=== PATIENT | female | born 1955 | race Caucasian/White ===

== ENCOUNTER → 2017-12-08 08:06 | Outpatient (CLI) | payer OTHER, SELFPAY ==
--- NOTE | 2017-12-08 | DI.MG.S_ITS ---
BILATERAL DIGITAL SCREENING MAMMOGRAM 3D/2D WITH CAD: 12/08/2017 CLINICAL: Routine screening. Family history of breast cancer. Comparison is made to exams dated: 11/11/2016 mammogram - [facility], 08/17/2015 mammogram, and 08/01/2014 mammogram - [facility]. The tissue of both breasts is heterogeneously dense. This may lower the sensitivity of mammography. Current study was also evaluated with a Computer Aided Detection (CAD) system. There is a focal asymmetry in the left breast at 4 o'clock middle depth. No other significant masses, calcifications, or other findings are seen in either breast. IMPRESSION: INCOMPLETE: NEEDS ADDITIONAL IMAGING EVALUATION The focal asymmetry in the left breast is indeterminate. Additional views with possible ultrasound are recommended. This exam was interpreted at Station ID: [id number]. NOTE: For mammograms, a report in lay terms will be sent to the patient. Approximately 15% of breast malignancies will not be visualized mammographically. In the management of a palpable breast mass, a negative mammogram must not discourage biopsy of a clinically suspicious lesion. Electronically Signed By: Nilam sheets/denis:12/08/2017 16:53:21 letter sent: Additional Imaging Needed ACR BI-RADS Category 0: Incomplete 3340F
== END ==
PROVIDERS: PCP Internal Medicine; Visit Provider Internal Medicine
DX: Z12.31 Encounter for screening mammogram for malignant neoplasm of breast (principal); Z80.3 Family history of malignant neoplasm of breast
CPT/HCPCS: 77063; 77067

== ENCOUNTER → 2017-12-13 08:44 | Outpatient (CLI) | payer OTHER, SELFPAY ==
[2017-12-13 10:29] LABS: Add Manual Diff / Slide Review NO; Basophils Percent Auto 1.8 % (0-2); Eosinophils Percent Auto 2.9 % (2-4); Hematocrit 39.2 % (36-46); Hemoglobin 13.5 g/dL (12.0-16.0); Lymphocytes Percent Auto 31.1 % (25-40); Mean Corpuscular HGB Conc 34.6 % (30-36); Mean Corpuscular Hemoglobin 31.8 PG (26-34); Mean Corpuscular Volume 92.1 fL (80-100); Monocytes Percent Auto 11.5 % (3-14); Neutrophils Absolute Auto 1900 /uL (3000-5900); Neutrophils Percent Auto 52.7 % (50-75); Platelet Count 148 X10^3/uL (150-400); Red Blood Cell Count 4.25 X10^6/uL (4.0-5.2); Red Cell Distribution Width 14.7 % (11.6-14.8); White Blood Cell Count 3.6 X10^3/uL (4.5-11.0)
[2017-12-13 10:46] LABS: Erythrocyte Sedimentation Rate 4 MM/HR (0-20)
[2017-12-13 11:10] LABS: Alanine Aminotransferase 26 IU/L (9-52); Albumin 4.2 g/dL (3.5-5.0); Albumin Globulin Ratio 1.8 (1.0-2.8); Alkaline Phosphatase 59 U/L (38-126); Aspartate Aminotransferase 19 IU/L (14-36); BUN Creatinine Ratio 16.3 (6-22); Blood Urea Nitrogen 13 mg/dL (7-17); Calcium 9.4 mg/dL (8.4-10.2); Carbon Dioxide 29 mmol/L (22-32); Chloride 104 mmol/L (98-107); Estimated Glomerular Filt Rate > 60.0 mL/min (>60); Globulin 2.3 g/dL (1.7-4.1); Glucose 77 mg/dL (80-110); HEMOLYSIS < 15 (0-50); Potassium 4.4 mmol/L (3.4-5.1); Sodium 144 mmol/L (137-145); Total Protein 6.5 g/dL (6.3-8.2)
[2017-12-13 11:11] LABS: C-Reactive Protein Quant < 0.5 mg/dL (<1.0)
== END ==
PROVIDERS: PCP Internal Medicine; Visit Provider Specialist/Technologist Athletic Trainer
DX: M05.79 Rheumatoid arthritis with rheumatoid factor of multiple sites without organ or systems involvement (principal)
CPT/HCPCS: 36415; 80053; 85025; 85651; 86140

== ENCOUNTER → 2018-01-05 08:49 | Outpatient (CLI) | payer OTHER, SELFPAY ==
--- NOTE | 2018-01-05 | DI.MG.S_ITS ---
UNILATERAL LEFT DIGITAL DIAGNOSTIC MAMMOGRAM 3D/2D WITH ADDITIONAL VIEWS: 01/05/2018 CLINICAL: Additional evaluation requested from prior study. Left breast pain. Comparison is made to exams dated: 12/08/2017 mammogram, 11/11/2016 mammogram - [facility], and 08/17/2015 mammogram - [facility]. The tissue of left breast is heterogeneously dense. This may lower the sensitivity of mammography. Previously noted focal asymmetry in the left breast at 4 o'clock middle depth on comparison screening mammogram resolves with additional views and likely represented superimposition of benign anatomic tissues. There is a square marker overlying the skin of the lower inner left breast at posterior depth at the site of the patient's reported focal pain. There is no underlying mammographic abnormality. No other significant masses, calcifications, or other findings are seen in the breast. IMPRESSION: INCOMPLETE: NEEDS ADDITIONAL IMAGING EVALUATION 1) Previously noted focal asymmetry in the left breast at 4 o'clock middle depth on comparison screening mammogram resolves with additional views and likely represented superimposition of benign anatomic tissues. A targeted ultrasound is recommended and will be performed immediately following this exam. 2) No mammographic abnormality to correlate with the site of the patient's reported focal pain in the lower inner left breast. Targeted diagnostic ultrasound recommended for further evaluation, which will be performed immediately following this exam. This exam was interpreted at Station ID: [id number]. NOTE: For mammograms, a report in lay terms will be sent to the patient. Approximately 15% of breast malignancies will not be visualized mammographically. In the management of a palpable breast mass, a negative mammogram must not discourage biopsy of a clinically suspicious lesion. Electronically Signed By: Javi Reaves M.D. ecl/:01/05/2018 09:28:03 letter sent: Additional Imaging Needed ACR BI-RADS Category 0: Incomplete 3340F
--- NOTE | 2018-01-05 | DI.US.S_ITS ---
LIMITED ULTRASOUND OF LEFT BREAST: 01/05/2018 CLINICAL: Focal left breast pain. Also abn mammo central to nipple and 3-5:00 radians. Comparison is made to exams dated: 01/05/2018 mammogram, 12/08/2017 mammogram, 11/11/2016 mammogram - [facility], 08/17/2015 mammogram, 08/01/2014 mammogram, and 07/12/2013 mammogram - [facility]. Real-time and Doppler ultrasound of the left breast 3-5 o'clock, 7 o'clock, and retroareolar regions were performed. Duke scale images of the real-time examination were reviewed. Targeted ultrasound along the 3-5 o'clock radians does not demonstrate a correlate for the previously noted focal asymmetry in the left breast at 4 o'clock middle depth on comparison screening mammogram, which resolved with additional views and likely represented superimposition of benign anatomic tissues. There is no underlying abnormality or mass identified. Targeted ultrasound along the 7 o'clock radian at the site of the patient's reported focal pain does not demonstrate any underlying abnormality or mass. IMPRESSION: NEGATIVE 1) Previously noted focal asymmetry in the left breast at 4 o'clock middle depth on comparison screening mammogram resolves with additional mammographic views and likely represented superimposition of benign anatomic tissues. Targeted ultrasound demonstrates no abnormality or mass in this region. 2) No mammographic abnormality to correlate with the site of the patient's reported focal pain in the lower inner left breast. Clinical follow-up recommended for further evaluation and management. 3) There is no sonographic evidence of malignancy in the left breast. A 1 year screening mammogram is recommended. The patient is advised to monitor her breasts and to return sooner for re-evaluation should she feel anything grow or change. This exam was interpreted at Station ID: [id number]. Electronically Signed By: Javi Reaves M.D. ecl/:01/05/2018 10:09:35 letter sent: Clinical Evaluation Ultrasound BI-RADS: 1 Negative
== END ==
PROVIDERS: PCP Nurse Practitioner Family; Visit Provider Nurse Practitioner Family
DX: R92.8 Other abnormal and inconclusive findings on diagnostic imaging of breast (principal); N64.4 Mastodynia
CPT/HCPCS: 76642; 77065; G0279

== ENCOUNTER → 2018-02-22 08:53 | Outpatient (CLI) | payer OTHER, SELFPAY ==
[2018-02-22 09:30] LABS: Hematocrit 41.3 % (36-46); Hemoglobin 14.1 g/dL (12.0-16.0); Mean Corpuscular HGB Conc 34.1 % (30-36); Mean Corpuscular Hemoglobin 31.4 PG (26-34); Mean Corpuscular Volume 92.2 fL (80-100); Platelet Count 153 X10^3/uL (150-400); Red Blood Cell Count 4.48 X10^6/uL (4.0-5.2); Red Cell Distribution Width 14.2 % (11.6-14.8); White Blood Cell Count 3.2 X10^3/uL (4.5-11.0)
[2018-02-22 09:39] LABS: Hemoglobin A1C% w Est Avg Glu 5.3 % (4.0-6.0)
[2018-02-22 09:49] LABS: Alanine Aminotransferase 27 IU/L (9-52); Albumin 4.6 g/dL (3.5-5.0); Albumin Globulin Ratio 1.8 (1.0-2.8); Alkaline Phosphatase 62 U/L (38-126); Aspartate Aminotransferase 21 IU/L (14-36); BUN Creatinine Ratio 23.8 (6-22); Bilirubin Total 0.9 mg/dL (0.2-1.3); Blood Urea Nitrogen 19 mg/dL (7-17); Calcium 9.3 mg/dL (8.4-10.2); Carbon Dioxide 26 mmol/L (22-32); Chloride 104 mmol/L (98-107); Cholesterol 220 mg/dL (140-199); Estimated Glomerular Filt Rate > 60.0 mL/min (>60); Globulin 2.6 g/dL (1.7-4.1); Glucose 86 mg/dL (80-110); HDL Cholesterol 66 mg/dL (40-60); HEMOLYSIS < 15 (0-50); LDL Cholesterol Calculated 141 mg/dL (<100); Potassium 4.2 mmol/L (3.4-5.1); Sodium 143 mmol/L (137-145); Total Protein 7.2 g/dL (6.3-8.2); Triglycerides 67 mg/dL (35-150)
[2018-02-22 10:14] LABS: Thyroid Stimulating Hormone 0.11 uIU/mL (0.47-4.68)
[2018-02-22 10:33] LABS: Hep C Virus Ab w/Reflex Quant NEGATIVE s/c (NEGATIVE)
== END ==
PROVIDERS: PCP Nurse Practitioner Family; Visit Provider Nurse Practitioner Family
DX: Z86.39 Personal history of other endocrine, nutritional and metabolic disease (principal); E03.9 Hypothyroidism, unspecified; Z11.59 Encounter for screening for other viral diseases
CPT/HCPCS: 36415; 80053; 80061; 83036; 84443; 85027; 86803

== ENCOUNTER → 2018-06-06 10:58 | Outpatient (CLI) | payer OTHER, SELFPAY ==
[2018-06-06 11:42] LABS: Add Manual Diff / Slide Review NO; Basophils Absolute Auto 0 /uL (0-100); Basophils Percent Auto 0.9 % (0-2); Eosinophils Absolute Auto 100 /uL (0-450); Eosinophils Percent Auto 1.7 % (2-4); Hematocrit 39.4 % (36-46); Hemoglobin 13.3 g/dL (12.0-16.0); Lymphocytes Absolute Auto 1200 /uL (1100-4500); Lymphocytes Percent Auto 23.9 % (25-40); Mean Corpuscular HGB Conc 33.8 % (30-36); Mean Corpuscular Hemoglobin 31.6 PG (26-34); Mean Corpuscular Volume 93.4 fL (80-100); Monocytes Absolute Auto 400 /uL (0-900); Monocytes Percent Auto 7.3 % (3-14); Neutrophils Absolute Auto 3200 /uL (1500-7000); Neutrophils Percent Auto 66.2 % (50-75); Platelet Count 153 X10^3/uL (150-400); Red Blood Cell Count 4.22 X10^6/uL (4.0-5.2); Red Cell Distribution Width 14.6 % (11.6-14.8); White Blood Cell Count 4.8 X10^3/uL (4.5-11.0)
[2018-06-06 12:04] LABS: Erythrocyte Sedimentation Rate 7 MM/HR (0-20)
[2018-06-06 12:22] LABS: Alanine Aminotransferase 24 IU/L (9-52); Albumin 4.3 g/dL (3.5-5.0); Albumin Globulin Ratio 1.9 (1.0-2.8); Alkaline Phosphatase 62 U/L (38-126); Aspartate Aminotransferase 18 IU/L (14-36); BUN Creatinine Ratio 21.3 (6-22); Bilirubin Total 0.8 mg/dL (0.2-1.3); Blood Urea Nitrogen 17 mg/dL (7-17); Calcium 9.4 mg/dL (8.4-10.2); Carbon Dioxide 28 mmol/L (22-32); Chloride 101 mmol/L (98-107); Estimated Glomerular Filt Rate > 60.0 mL/min (>60); Globulin 2.3 g/dL (1.7-4.1); Glucose 96 mg/dL (80-110); HEMOLYSIS < 15 (0-50); Potassium 4.9 mmol/L (3.4-5.1); Sodium 137 mmol/L (137-145); Total Protein 6.6 g/dL (6.3-8.2)
[2018-06-06 12:24] LABS: C-Reactive Protein Quant < 0.5 mg/dL (<1.0)
[2018-06-06 12:40] LABS: Free T3, Triiodothyronine Free 2.66 pg/mL (2.77-5.27); Free T4, Direct Thyroxine 1.13 ng/dL (0.78-2.19)
[2018-06-06 12:54] LABS: Thyroid Stimulating Hormone 7.06 uIU/mL (0.47-4.68)
== END ==
PROVIDERS: Family Provider Nurse Practitioner Family; PCP Nurse Practitioner Family; Visit Provider Specialist/Technologist Athletic Trainer
DX: M05.79 Rheumatoid arthritis with rheumatoid factor of multiple sites without organ or systems involvement (principal); E03.9 Hypothyroidism, unspecified
CPT/HCPCS: 36415; 80053; 84439; 84443; 84481; 85025; 85651; 86140

== ENCOUNTER → 2018-06-27 13:30 | Outpatient (CLI) | payer OTHER, SELFPAY | PROVIDERS: Family Provider Nurse Practitioner Family; PCP Nurse Practitioner Family; Visit Provider Specialist/Technologist Athletic Trainer | DX: M85.88 Other specified disorders of bone density and structure, other site (principal); Z78.0 Asymptomatic menopausal state; E07.9 Disorder of thyroid, unspecified; M06.9 Rheumatoid arthritis, unspecified; Z87.891 Personal history of nicotine dependence | CPT/HCPCS: 77080 ==

== ENCOUNTER → 2018-11-20 12:07 | Outpatient (CLI) | payer OTHER, SELFPAY ==
--- NOTE | 2018-11-20 | DI.RAD.S_ITS ---
PROCEDURE: XR KNEE LT 3V INDICATIONS: KNEE JOINT INSTABILITY TECHNIQUE: 3 views of the knee were acquired. COMPARISON: None. FINDINGS: Bones: No fractures or dislocations. No suspicious bony lesions. No definite joint space narrowing. Scattered degenerative spurring. Soft tissues: No joint effusion. No suspicious soft tissue calcifications. IMPRESSION: Grossly unremarkable examination. Mild degenerative changes. If the patient's pain or other symptoms persist, consider further evaluation with MRI Dictated by: Javon Smith M.D. on 11/20/2018 at 16:29 Approved by: Javon Smith M.D. on 11/20/2018 at 16:31
== END ==
PROVIDERS: PCP Nurse Practitioner Family; Visit Provider Nurse Practitioner Family
DX: M25.362 Other instability, left knee (principal)
CPT/HCPCS: 73562

== ENCOUNTER → 2019-01-07 13:20 | Outpatient (CLI) | payer OTHER, SELFPAY ==
--- NOTE | 2019-01-07 | DI.MG.S_ITS ---
BILATERAL DIGITAL SCREENING MAMMOGRAM 3D/2D WITH CAD: 01/07/2019 CLINICAL: Routine screening. Family history of breast cancer. Comparison is made to exams dated: 12/08/2017 mammogram, 11/11/2016 mammogram - [facility], and 08/17/2015 mammogram - [facility]. There are scattered fibroglandular elements in both breasts. Current study was also evaluated with a Computer Aided Detection (CAD) system. No significant masses, calcifications, or other findings are seen in either breast. There has been no significant interval change. IMPRESSION: NEGATIVE There is no mammographic evidence of malignancy. A 1 year screening mammogram is recommended. This exam was interpreted at Station ID: [id number]. NOTE: For mammograms, a report in lay terms will be sent to the patient. Approximately 15% of breast malignancies will not be visualized mammographically. In the management of a palpable breast mass, a negative mammogram must not discourage biopsy of a clinically suspicious lesion. Electronically Signed By: Mary dong/denis:01/07/2019 17:04:33 letter sent: Normal Exam ACR BI-RADS Category 1: Negative 3341F
== END ==
PROVIDERS: PCP Nurse Practitioner Family; Visit Provider Nurse Practitioner Family
DX: Z12.31 Encounter for screening mammogram for malignant neoplasm of breast (principal); Z80.3 Family history of malignant neoplasm of breast
CPT/HCPCS: 77063; 77067

== ENCOUNTER → 2020-01-09 11:06 | Outpatient (CLI) | payer OTHER, SELFPAY ==
--- NOTE | 2020-01-09 | DI.MG.S_ITS ---
BILATERAL DIGITAL SCREENING MAMMOGRAM 3D/2D WITH CAD: 01/09/2020 CLINICAL: Routine screening. Family history of breast cancer. Comparison is made to exams dated: 01/07/2019 mammogram, 12/08/2017 mammogram, 11/11/2016 mammogram, and 01/05/2018 mammogram - [facility]. There are scattered fibroglandular elements in both breasts. Current study was also evaluated with a Computer Aided Detection (CAD) system. No significant masses, calcifications, or other findings are seen in either breast. There has been no significant interval change. IMPRESSION: NEGATIVE There is no mammographic evidence of malignancy. A 1 year screening mammogram is recommended. This exam was interpreted at Station ID: [id number]. NOTE: For mammograms, a report in lay terms will be sent to the patient. Approximately 15% of breast malignancies will not be visualized mammographically. In the management of a palpable breast mass, a negative mammogram must not discourage biopsy of a clinically suspicious lesion. Electronically Signed By: Mp reyes/denis:01/09/2020 16:32:58 letter sent: Normal Exam ACR BI-RADS Category 1: Negative 3341F
== END ==
PROVIDERS: PCP Internal Medicine; Referring Provider Internal Medicine; Visit Provider Internal Medicine
DX: Z12.31 Encounter for screening mammogram for malignant neoplasm of breast (principal); Z80.3 Family history of malignant neoplasm of breast
CPT/HCPCS: 77063; 77067

== ENCOUNTER → 2020-08-27 07:38 | Outpatient (CLI) | payer OTHER, SELFPAY ==
--- NOTE | 2020-08-27 | DI.US.S_ITS ---
PROCEDURE: US PELVIC COMPLETE INDICATIONS: RIGHT LOWER QUADRANT PAIN TECHNIQUE: Real-time scanning was performed of the pelvic organs, with image documentation. Additional endovaginal scanning was necessary due to incomplete visualization of the adnexal and endometrial structures by transabdominal scanning. COMPARISON: [facility], , US ABDOMEN COMPLETE, 08/27/2020, 8:19. FINDINGS: Uterus: Removed. Ovaries: Neither ovary is well seen, secondary to overlying bowel gas. No adnexal masses are seen on either side. Other: No pathologic free abdominal or pelvic fluid. IMPRESSION: Status post hysterectomy. Limited study, without visualization of either ovary. Dictated by: Meliton Hoyt M.D. on 08/27/2020 at 8:24 Approved by: Meliton Hoyt M.D. on 08/27/2020 at 8:25
--- NOTE | 2020-08-27 | DI.US.S_ITS ---
PROCEDURE: US ABDOMEN COMPLETE INDICATIONS: RIGHT LOWER QUADRANT PAIN TECHNIQUE: Real-time scanning was performed of the abdominal and retroperitoneal organs, with image documentation. COMPARISON: [facility], US, US PELVIC COMPLETE, 08/27/2020, 8:06. FINDINGS: Liver: Liver is normal in size and homogeneous in echotexture. The main portal vein demonstrates normal size and demonstrates normal appearing, hepatopetal flow. Gallbladder: No findings of gallstones or sludge are seen. The gallbladder wall is not thickened, measuring 3 mm or less. No specific pericholecystic fluid is seen. The sonographic Lawler sign is negative. Biliary ducts: Intrahepatic bile ducts are non-dilated. Extrahepatic bile duct caliber measures 5-6 mm. Normal is 6-7 mm or less in diameter, or 10 mm or less post-cholecystectomy. Pancreas: Visualized portions of the pancreas are sonographically normal. Spleen: Spleen is normal in size and homogeneous in echotexture. Kidneys: Kidneys are normal in size and echotexture. Right kidney measures 10.5 cm long; left kidney measures 11.1 cm long. No hydronephrosis or nephrolithiasis. Within the right kidney along its mid/anterior aspect there is a hyperechoic homogeneous lesion without abnormal vascularity that measures 2.7 x 2.6 x 4.4 mm. Aorta: Visualized aorta is normal in caliber at less than 3 cm. Iliacs: Proximal common iliac arteries are normal in caliber at less than 2.5 cm. IVC: Intrahepatic inferior vena cava is patent. Miscellaneous: No free abdominal fluid. Additional, dedicated ultrasound scanning is performed at the area of right lower quadrant pain. No focal ultrasound abnormalities are seen within this region. IMPRESSION: No significant abnormality is seen to explain the patient's presenting history of right lower quadrant pain. Incidental note is made of a presumed benign fatty lesion within the right kidney measuring 4.4 mm. Dictated by: Meliton Hoyt M.D. on 08/27/2020 at 8:25 Approved by: Meliton Hoyt M.D. on 08/27/2020 at 8:27
== END ==
PROVIDERS: PCP Internal Medicine; Referring Provider Internal Medicine; Visit Provider Internal Medicine
DX: R10.31 Right lower quadrant pain (principal); Z90.710 Acquired absence of both cervix and uterus
CPT/HCPCS: 76700; 76830; 76856

== ENCOUNTER → 2021-02-10 08:42 | Outpatient (CLI) | payer OTHER, SELFPAY ==
--- NOTE | 2021-02-10 | DI.MG.S_ITS ---
BILATERAL DIGITAL SCREENING MAMMOGRAM 3D/2D WITH CAD: 02/10/2021 CLINICAL: Routine screening. Family history of breast cancer. Comparison is made to exams dated: 01/09/2020 mammogram, 01/07/2019 mammogram, 12/08/2017 mammogram, and 01/05/2018 mammogram - [facility]. There are scattered fibroglandular elements in both breasts. Current study was also evaluated with a Computer Aided Detection (CAD) system. No significant masses, calcifications, or other findings are seen in either breast. There has been no significant interval change. IMPRESSION: NEGATIVE There is no mammographic evidence of malignancy. A 1 year screening mammogram is recommended. This exam was interpreted at Station ID: [id number]. NOTE: For mammograms, a report in lay terms will be sent to the patient. Approximately 15% of breast malignancies will not be visualized mammographically. In the management of a palpable breast mass, a negative mammogram must not discourage biopsy of a clinically suspicious lesion. Electronically Signed By: Mp reyes/denis:02/10/2021 10:36:47 letter sent: Normal Exam ACR BI-RADS Category 1: Negative 3341F
== END ==
PROVIDERS: PCP Internal Medicine; Referring Provider Internal Medicine; Visit Provider Internal Medicine
DX: Z12.31 Encounter for screening mammogram for malignant neoplasm of breast (principal); Z80.3 Family history of malignant neoplasm of breast
CPT/HCPCS: 77063; 77067

== ENCOUNTER 2021-08-11 23:10 | Emergency (ER) | payer OTHER, SELFPAY ==
[2021-08-11 23:20] VITALS: BP 128/90; PULSE 75; RESP 18; TEMP 37.1; O2SAT 100; BMI 21.8
--- NOTE | 2021-08-11 23:42 | PC.NURSE ---
Pt had episode of emesis. Roughly 600mL greenish output. Pt endorses feeling better after this, declined zofran dose and reports minimal to no pain present currently.
[2021-08-11 23:45] LABS: Add Manual Diff / Slide Review NO; Basophils Absolute Auto 100 /uL (0-100); Basophils Percent Auto 0.8 % (0-2); Eosinophils Absolute Auto 100 /uL (0-450); Eosinophils Percent Auto 0.9 % (2-4); Hematocrit 40.9 % (36-46); Lymphocytes Absolute Auto 1200 /uL (1100-4500); Lymphocytes Percent Auto 15.1 % (25-40); Mean Corpuscular HGB Conc 34.2 % (30-36); Mean Corpuscular Hemoglobin 31.6 PG (26-34); Mean Corpuscular Volume 92.3 fL (80-100); Monocytes Absolute Auto 300 /uL (0-900); Monocytes Percent Auto 4.2 % (3-14); Neutrophils Absolute Auto 6000 /uL (1500-7000); Platelet Count 141 X10^3/uL (150-400); Red Blood Cell Count 4.44 X10^6/uL (4.0-5.2); Red Cell Distribution Width 14.3 % (11.6-14.8); White Blood Cell Count 7.6 X10^3/uL (4.5-11.0)
[2021-08-11 23:49] LABS: Alanine Aminotransferase 26 IU/L (<35); Albumin 4.4 g/dL (3.5-5.0); Albumin Globulin Ratio 1.6 (1.0-2.8); Alkaline Phosphatase 72 U/L (38-126); Aspartate Aminotransferase 28 IU/L (14-36); BUN Creatinine Ratio 20.5 (6-22); Bilirubin Total 0.8 mg/dL (0.2-1.3); Blood Urea Nitrogen 18 mg/dL (7-17); Calcium 9.6 mg/dL (8.4-10.2); Carbon Dioxide 25 mmol/L (22-32); Chloride 104 mmol/L (98-107); Estimated Glomerular Filt Rate > 60 mL/min (>60); Globulin 2.8 g/dL (1.7-4.1); Glucose 126 mg/dL (80-110); HEMOLYSIS < 15 (0-50); Lipase 123 U/L (23-300); Potassium 3.9 mmol/L (3.4-5.1); Sodium 137 mmol/L (137-145); Total Protein 7.2 g/dL (6.3-8.2)
[2021-08-12 00:59] LABS: Bilirubin Urine UA NEGATIVE (NEGATIVE); Glucose Urine UA NEGATIVE (Negative); Ketones Urine UA TRACE (NEGATIVE); Leukocyte Esterase Urine UA NEGATIVE (NEGATIVE); Nitrite Urine UA NEGATIVE (Negative); Occult Blood Urine UA NEGATIVE (Negative); Protein Urine UA TRACE (Negative); Specific Gravity Urine UA 1.015 (1.000-1.035)
[2021-08-12 01:01] LABS: Appearance Urine UA CLOUDY; Color Urine UA Dark Yellow; RBC Urine None Seen (0-5/HPF); WBC Urine None Seen (0-5/HPF)
--- NOTE | 2021-08-12 01:01 | ED_ITS ---
HPI - General Adult General Chief complaint: Abdominal Pain Stated complaint: abd pain Time Seen by Provider: 08/12/21 00:00 Source: patient Mode of arrival: Ambulatory History of Present Illness HPI narrative: 65-year-old woman with no significant medical history presents with complaints of stomach cramps and significant bloating with constant pain and then spikes of increasing pain that has been present since dinner. Dinner consisted of a large salad that her 8 as well and is not having any adverse effects. She tried passing gas with no affect the pain. She was nauseated but unable to burp. As the pain continued to increase she contacted the nurse referral line and it was suggested that she come to the emergency department. She does not describe any recent fevers, cough, nausea or vomiting. She notes that she has never had regular bowel movements she did have 1 today and does not feel that she is particularly constipated at this time. She complains of no chest pain, dyspnea palpitations or lower extremity edema Review of Systems Review of Systems Narrative: Remainder of complete review of systems is otherwise unremarkable except for that included in the HPI. Patient History Social History Smoking Status: Never smoker Smoking Status: Never smoker alcohol intake frequency: 0-2 drinks per day Substance Use Type: does not use Exam Initial Vital Signs Initial Vital Signs: Vital Signs Temperature 98.7 F 08/11/21 23:20 Pulse Rate 75 08/11/21 23:20 Respiratory Rate 18 08/11/21 23:20 Blood Pressure 128/90 08/11/21 23:20 Pulse Oximetry 100 08/11/21 23:20 General: Healthy appearing, in no acute distress. Able to give a complete and coherent history. Well-nourished well-developed HEENT: Moist mucous membranes, normal sclera with reactive pupils, Neck: No JVD, supple Respiratory: Lungs are clear to auscultation, no wheezing no rales no rhonchi. Full and symmetrical air movement Cardiac: Regular rate and rhythm no murmurs no bruits Abdomen: Soft, nontender, no distension good bowel tones, no flank pain Skin: Warm and dry, no rashes Neurologic: Grossly neurologically intact with no obvious asymmetries or abnormalities Extremities: No trauma, well perfused Psych: Cooperative, appropriate insight and affect Course Orders Ordered: ED Orders 08/11/21 23:29 Complete Blood Count AUTO DIFF Stat Comprehensive Metabolic Panel Stat Lipase Stat 08/12/21 00:45 Urinalysis and Microscopic Stat Discontinued Medications Ondansetron HCl (Ondansetron 4 Mg/2 Ml Inj) 4 mg IV NOW ONE Stop: 08/11/21 23:40 Vital Signs Vital signs: Vital Signs - 8 hr 08/11/21 23:20 Temperature 98.7 F Pulse Rate 75 Respiratory Rate 18 Blood Pressure 128/90 Pulse Oximetry 100 Medical Decision Making Lab Data Result diagrams: 08/11/21 23:29 08/11/21 23:29 Labs: Lab Results 08/11/21 08/11/21 Range/Units 23:29 23:29 WBC 7.6 (4.5-11.0) X10^3/uL RBC 4.44 (4.0-5.2) X10^6/uL Hgb 14.0 (12.0-16.0) g/dL Hct 40.9 (36-46) % MCV 92.3 (80-100) fL MCH 31.6 (26-34) PG MCHC 34.2 (30-36) % RDW 14.3 (11.6-14.8) % Plt Count 141 L (150-400) X10^3/uL Neut % (Auto) 79.0 H (50-75) % Lymph % (Auto) 15.1 L (25-40) % Washburn % (Auto) 4.2 (3-14) % Eos % (Auto) 0.9 L (2-4) % Baso % (Auto) 0.8 (0-2) % Neut # (Auto) 6000 (9508-9149) /uL Lymph # (Auto) 1200 (4617-5282) /uL Washburn # (Auto) 300 (0-900) /uL Eos # (Auto) 100 (0-450) /uL Baso # (Auto) 100 (0-100) /uL Sodium 137 (137-145) mmol/L Potassium 3.9 (3.4-5.1) mmol/L Chloride 104 (98-107) mmol/L Carbon Dioxide 25 (22-32) mmol/L BUN 18 H (7-17) mg/dL Creatinine 0.88 (0.52-1.04) mg/dL Estimated GFR > 60 (>60) mL/min BUN/Creatinine Ratio 20.5 (6-22) Glucose 126 H (80-110) mg/dL Calcium 9.6 (8.4-10.2) mg/dL Total Bilirubin 0.8 (0.2-1.3) mg/dL AST 28 (14-36) IU/L ALT 26 (<35) IU/L Alkaline Phosphatase 72 (38-126) U/L Total Protein 7.2 (6.3-8.2) g/dL Albumin 4.4 (3.5-5.0) g/dL Globulin 2.8 (1.7-4.1) g/dL Albumin/Globulin Ratio 1.6 (1.0-2.8) Lipase 123 (23-300) U/L MDM Narrative Medical decision making narrative: 65-year-old woman presents with severe abdominal pain for the last 6 hours that seem to be getting worse. On arrival in the emergency department she was describing increasing nausea and eventually had a large volume emesis without any blood noted and states that her symptoms have entirely resolved at this point. She is having no additional pain nausea and is wondering if she is safe for discharge home. Labs are reassuring, exam is entirely benign. At this point I believe that the episode of emesis has resolved her issues with no sign of severe infection or need for further evaluation Discharge Plan Departure Patient Disposition: Home Clinical Impression: Abdominal pain Instructions: DI for Abdominal Pain-Adult Activity Restrictions/Additional Instructions: Thank you for coming in today I am not sure what caused her original symptoms however I a.m. encouraged that the single episode of emesis has resolved all of the. Your exam is entirely benign and your lab work is absolutely reassuring. At this time I think your problem has resolved and it is safe for you to go home. If you find that you are getting worse or develop any new symptoms, please feel free to return to the emergency department for further evaluation. Referrals: Kamla Cruz ARNP [Primary Care Provider] -
[2021-08-12 01:02] LABS: Amorphous Sediment Urine 3+; Bacteria Urine None Seen; Culture Indicated Urine Cult Not Indicated; Mucus Urine 1+ (Negative); Squamous Epithelial Cell Urine 0-1 /HPF (0-5/HPF)
[2021-08-12 01:16] VITALS: BP 124/80; PULSE 89; RESP 16; O2SAT 99
== END 2021-08-12 01:17 | disposition home or self-care (01) ==
PROVIDERS: Emergency Provider Emergency Medicine; PCP Internal Medicine
DX: R10.9 Unspecified abdominal pain (principal)
CPT/HCPCS: 36415; 80053; 81001; 83690; 85025; 99283

== ENCOUNTER → 2021-11-10 10:59 | Outpatient (CLI) | payer OTHER, SELFPAY ==
[2021-11-10 13:25] LABS: COVID19 -Nasal RAPID Negative (Negative)
== END ==
PROVIDERS: PCP Internal Medicine; Visit Provider Surgery
DX: Z01.812 Encounter for preprocedural laboratory examination (principal); Z20.822 Contact with and (suspected) exposure to COVID-19
CPT/HCPCS: 87635; C9803

== ENCOUNTER 2021-11-11 09:57 | Day surgery (SDC) | payer OTHER, SELFPAY ==
[2021-11-11] VITALS (7 sets, daily range): BP systolic 96–118; BP diastolic 66–85; PULSE 61–76; RESP 13–16; TEMP 36–36.6; O2SAT 94–100; BMI 21.5
--- NOTE | 2021-11-11 | PATH_ITS ---
[facility] Accession Number: [id number] . 01 Material submitted: . colon - SIGMOID POLYP . 01 Diagnosis: Sigmoid Colon, Polyp, Biopsy: Tubular adenoma. MRV 11/16/2021 1229 Local . 01 Electronically signed: . Lexi Jordan MD, Pathologist NPI- [id number] . 01 Gross description: . SIGMOID POLYP: Received in formalin is 1 fragment(s) of mai, soft tissue measuring 0.3 x 0.1 x 0.1 cm submitted entirely in 1 cassette(s) /CPE 11/12/2021 0832 Local . 01 Pathologist provided ICD-10: D12.5 . 01 CPT . 692409 Specimen Comment: A courtesy copy of this report has been sent to [phone] Performed at: 01 [facility] [address] [place] [address] [id number] MD Singh Gottlieb MD Phone: [phone]
[2021-11-11] MEDS: LACTATED RINGERS 1,000 ML 84 ML IV (10:34)
--- NOTE | 2021-11-11 11:57 | PM.HP.1 ---
History of Present Illness History of Present Illness Date Patient Seen: 11/11/21 Time Patient Seen: 11:57 Chief complaint: SDC Narrative: Juany is a 66-year-old woman who is here for colonoscopy. Her last 1 was about 10 years ago and no polyps were found. Her father recently of colon cancer in his 90s. Patient History Family & Social History Social History: household members spouse Tobacco & Substance use: Smoking Status Never smoker alcohol intake current alcohol intake frequency holiday/special occasion Substance Use Type does not use Meds Home Medications and Allergies Home Medications Medication Instructions Recorded Confirmed Type levothyroxine 88 mcg tablet 88 mcg 11/11/21 History methotrexate sodium 2.5 mg tablet 15 mg WEEKLY 11/11/21 11/11/21 History Allergies Allergy/AdvReac Type Severity Reaction Status Date / Time erythromycin base Allergy Mild Verified 11/11/21 10:12 penicillin G Allergy Mild Verified 11/11/21 10:12 Sulfa (Sulfonamide Allergy Mild Verified 11/11/21 10:12 Antibiotics) Tetracyclines Allergy Mild Verified 11/11/21 10:12 Exam Vital Signs (past 8 hours): - 11/11/21 10:16 Temperature 97.7 F Pulse Rate 76 Respiratory Rate 16 Blood Pressure 118/85 Pulse Oximetry 94 Oxygen Delivery Method Room Air Oxygen Delivery Method Room Air Const General: No acute distress Resp Effort & Inspection: normal respiratory effort Assessment & Plan Assessment and plan (1) Colon cancer screening: Status: Acute Plan 66-year-old woman here for colonoscopy for colon cancer screening. We reviewed the risks and benefits and she would like to proceed. Time Spent With Patient Critical Care time: I spent a total of [] minutes of critical care time on this patient's care today; this time is exclusive of procedural time.
[2021-11-11] MEDS: fentaNYL 100 MCG/2 ML INJ 225 MCG IV (12:25)
[2021-11-11] MEDS: MIDAZOLAM 5 MG/5 ML VIAL 10 MG IV (12:25)
--- NOTE | 2021-11-11 12:46 | PM.OP.COLON ---
Operative Date/Time/Diagnoses Date of procedure: 11/11/21 Time of procedure: 12:47 Pre-op diagnosis: Colon cancer screening Post-op diagnosis: same Procedure & Clinicians Study performed: Colonoscopy Same procedure as scheduled: Yes Surgeon: Dominguez Gray Procedure Notes Procedure in detail: Surgeon: Dominguez Gray MD Procedure: The patient was brought to the endoscopy suite, placed in left lateral decubitus position. The patient was connected to monitoring devices. A time-out was performed. Sedation was administered. Once the patient was adequately sedated, a digital rectal exam was performed and was normal. The scope was then inserted and advanced to the cecum where the appendiceal orifice was identified and photographed. The scope was then slowly withdrawn over greater than 6 minutes. The mucosa was thoroughly inspected. There was 1 small polyp in the sigmoid colon roughly 4 mm removed with a cold snare. The scope was retroflexed in the rectum. No abnormalities were noted. The scope was straightened and removed. The patient was awakened and brought to recovery. Versed: 10 mg Fentanyl: 25 mcg EBL: 5 mL Findings: 5 mm polyp in the sigmoid colon Scope withdrawal time: 11 Sedation minutes: 32 Post-procedure Disposition: PACU
--- NOTE | 2021-11-11 13:01 | SUR.PHASEI ---
Discharge instructions reviewed with pt and verbalized understanding.
--- NOTE | 2021-11-11 16:34 | SUR.PHASEII ---
Late entry: pt sleepy, left when more awake and left in stable condition.
== END 2021-11-11 14:20 | disposition home or self-care (01) ==
PROVIDERS: PCP Internal Medicine; Referring Provider Surgery; Visit Provider Surgery
PROC: 0DJD8ZZ Inspection of Lower Intestinal Tract, Via Natural or Artificial Opening Endoscopic (ICD-10-PCS; CPT 45378; principal; 2021-11-11 11:00)
DX: Z12.11 Encounter for screening for malignant neoplasm of colon (principal); D12.5 Benign neoplasm of sigmoid colon
CPT/HCPCS: 45385; 99152; 99153; J2250; J3010

== ENCOUNTER → 2022-02-11 13:20 | Outpatient (CLI) | payer OTHER, SELFPAY ==
--- NOTE | 2022-02-11 | DI.MG.S_ITS ---
BILATERAL DIGITAL SCREENING MAMMOGRAM 3D/2D WITH CAD: 02/11/2022 CLINICAL: Routine screening. Family history of breast cancer. Comparison is made to exams dated: 02/10/2021 mammogram, 01/09/2020 mammogram, and 01/07/2019 mammogram - [facility]. There are scattered areas of fibroglandular density in both breasts (category b / 25%-50% glandular tissue). Current study was also evaluated with a Computer Aided Detection (CAD) system. There is an oval asymmetry with an obscured margin in the left breast central to the nipple anterior depth. This is more prominent. There is architectural distortion associated with the asymmetry. No other significant masses, calcifications, or other findings are seen in either breast. IMPRESSION: INCOMPLETE: NEEDS ADDITIONAL IMAGING EVALUATION The oval asymmetry in the left breast is indeterminate. Additional views with possible ultrasound are recommended. Based on the Tyrer Cuzick model (a risk assessment model) the patient's lifetime risk is 11.9% and her 10 year risk is 5.6%. According to the ACR, ACS, and NCCN guidelines, an annual breast MRI exam along with mammogram is recommended if the patient's lifetime risk is 20% or greater. This exam was interpreted at Station ID: [id number]. NOTE: For mammograms, a report in lay terms will be sent to the patient. Approximately 15% of breast malignancies will not be visualized mammographically. In the management of a palpable breast mass, a negative mammogram must not discourage biopsy of a clinically suspicious lesion. Electronically Signed By: Mary dong/denis:02/11/2022 16:20:54 letter sent: Additional Imaging Needed ACR BI-RADS Category 0: Incomplete 3340F
== END ==
PROVIDERS: PCP Internal Medicine; Referring Provider Internal Medicine; Visit Provider Internal Medicine
DX: Z12.31 Encounter for screening mammogram for malignant neoplasm of breast (principal); Z80.3 Family history of malignant neoplasm of breast
CPT/HCPCS: 77063; 77067

== ENCOUNTER → 2022-09-09 10:46 | Outpatient (CLI) | payer MEDICARE, OTHER, SELFPAY ==
--- NOTE | 2022-09-09 | DI.RAD.S_ITS ---
Bone Density Report Name: MYRIAM PARIKH Age: 67 Sex: Female Ethnicity: White Date of : 1955 Indication: osteopenia; Referring Provider: MINNIE HAM Study: Bone densitometry was performed. Exam Date: September 09, 2022 Accession number: [id number] Bone Density: Region BMD T-score Z-score Classification AP Spine(L1, L2, L3) 0.683 -3.0 -1.3 Osteoporosis Femoral Neck (Left) 0.650 -1.8 -0.3 Osteopenia Total Hip (Left) 0.761 -1.5 -0.3 Osteopenia Femoral Neck (Right) 0.660 -1.7 -0.2 Osteopenia Total Hip (Right) 0.765 -1.5 -0.2 Osteopenia Total Hip Mean 0.763 -1.5 -0.3 Osteopenia World Health Organization criteria for BMD impression classify patients as: Normal (T-score at or above -1.0), Osteopenia (T-score between -1.0 and -2.5), or Osteoporosis (T-score at or below -2.5). 10-year Fracture Risk: FRAX not reported because: Some T-score for Spine Total or Hip Total or Femoral Neck at or below -2.5 Previous Exams: -- Region Exam Age BMD T-score BMD Change BMD Change Date g/cm2 vs Baseline vs Previous -- AP Spine (L1-L3) 09/09/2022 67 0.683 -3.0 -0.099 (-12.7%)# -0.099 (-12.7%)# 06/27/2018 62 0.782 -2.1 Total Hip(Left) 09/09/2022 67 0.761 -1.5 0.015 (2.0%)# 0.015 (2.0%)# 06/27/2018 62 0.746 -1.6 Total Hip(Right) 09/09/2022 67 0.765 -1.5 0.003 (0.4%)# 0.003 (0.4%)# 06/27/2018 62 0.762 -1.5 -- *Denotes significance at 95% confidence level, LSC for AP Spine = 0.022 g/cm2, LSC for Total Hip = 0.027 g/cm2 # Denotes dissimilar scan types or analysis methods Impression: The patient has osteoporosis, based on the Total Spine T-score. No significant bone loss was observed. Discussion: INCREASED RISK OF FRACTURE. BONE DENSITY IS UNDESIRABLY LOW AT ONE OR MORE SKELETAL SITES, CONSISTENT WITH POSTMENOPAUSAL OSTEOPOROSIS. This patient's lowest T-score meets the World Health Organization's (WHO) criteria for osteoporosis at one or more sites (T-score -2.5 or below). In untreated patients, the risk of osteoporotic fracture increases approximately two-fold for each 1.0 SD decrease in T-score. Low bone density is not the only risk factor for fracture; also consider factors such as patient's age, frailty or poor health, risk of falling, risk of injury, previous osteoporotic fracture, family history of osteoporosis, cigarette smoking, low body weight, etc. Not everyone with low bone mineral density has osteoporosis; osteomalacia and other metabolic bone disorders should also be considered. Patients who have osteoporosis should be evaluated for specific diseases and conditions (secondary causes) that may cause or contribute to bone loss. The [place] Association [employer] Endocrinologists (AACE) and National Osteoporosis Foundation (NOF) recommend pharmacologic intervention for all postmenopausal women whose T-score is in this range. The patient should follow a healthful lifestyle (good nutrition with adequate calcium and vitamin D, and appropriate weight-bearing exercise). Follow-Up: Consider a repeat BMD and Vertebral Fracture Assessment (VFA) exam in 2 years or sooner if medically necessary, to reassess this patient's status. Reported by: JEN MARTINEZ MD on 09/09/2022 12:30:00 PM.
== END ==
PROVIDERS: PCP Internal Medicine; Referring Provider Internal Medicine; Visit Provider Internal Medicine
DX: M81.0 Age-related osteoporosis without current pathological fracture (principal); Z78.0 Asymptomatic menopausal state
CPT/HCPCS: 77080

== ENCOUNTER → 2022-11-21 06:55 | Outpatient (CLI) | payer MEDICARE, OTHER, SELFPAY ==
--- NOTE | 2022-11-21 | DI.ECHO.S_ITS ---
[facility] +---------+ : : [address] : [place] : : : : [id number] : : : : Phone: [phone]+ Echocardiogram Report + + :Name: MYRIAM PARIKH Study Date: 11/21/2022 Height: 69 in : [facility] ReadingLocation: Weight: 148 lb : : Gender: Female BSA: 1.8 m2 : :: 1955 Age: 67 yrs BP: 122/92 mmHg: :Reason For Study: PALPITATIONS : :Ordering Physician: FATOUMATA, : :MINNIE Performed By: Evelyn Mccord : :Referring: MINNIE HAM : + + Interpretation Summary The ejection fraction is estimated to be 55-60%. There is prolapse of the posterior mitral valve leaflet(s). There is moderate mitral regurgitation. The mitral regurgitant jet is eccentrically directed. There is mild tricuspid regurgitation. Consider EVELYN to better evaluate MR Procedure: A two-dimensional transthoracic echocardiogram with color flow and Doppler was performed. The study quality was technically adequate. There is no prior echocardiogram noted for this patient. The patient was in sinus rhythm with heart rates between 58-69 bpm during the exam. The patient had occasional PVCs during the exam. Left Ventricle: The left ventricle is normal in size and wall thickness. The ejection fraction is estimated to be 55-60%. Left ventricular wall motion is normal. Right Ventricle: The right ventricle is normal in size and function. Atria: The left atrial size is normal. Right atrial size is normal. There is no Doppler evidence for an interatrial shunt. Mitral Valve: The mitral valve is normal in structure and function. There is prolapse of the posterior mitral valve leaflet(s). There is moderate mitral regurgitation. The mitral regurgitant jet is eccentrically directed. Aortic Valve: The aortic valve is trileaflet. The aortic valve opens well. There is no aortic valve stenosis. No aortic regurgitation is present. Tricuspid Valve: The tricuspid valve is normal in structure and function. There is mild tricuspid regurgitation. Pulmonic Valve: The pulmonic valve leaflets are thin and pliable; valve motion is normal. There is mild pulmonic regurgitation. Great Vessels: The aortic root is normal size. The dimensions of the ascending aorta are normal. The IVC is of normal diameter and collapses greater than 50% with a sniff. This suggests a low right atrial pressure of 3 mm Hg. Pericardium/ Pleura There is no pericardial effusion. There is no pleural effusion. MMode/2D Measurements & Calculations LVIDd: 4.5 cm LVOT diam: 2.3 cm LVIDs: 3.1 cm Ao root diam: 3.6 cm FS: 30.7 % asc Aorta Diam: 3.3 cm EPSS: 0.47 cm Ao Arch Diam (Prox Trans): 3.0 cm IVSd: 0.75 cm LVPWd: 0.64 cm LV dunham. diameter/BSA (cm/m^2): 2.5 LV sys. diameter/BSA (cm/m^2): 1.7 LA A2 area: 16.6 cm2 RA long axis: 4.8 cm LA A4 area: 15.4 cm2 RA area: 13.6 cm2 LA length (vol): 4.4 cm RA vol: 33.0 ml LA vol: 48.8 ml RA : 18.1 ml/m2 LA vol index: 26.9 ml/m2 IVC diam: 1.7 cm RVD1 (basal): 3.3 cm RVD2 (mid): 3.1 cm TAPSE: 2.4 cm Doppler Measurements & Calculations Ao V2 max: 123.8 cm/sec LVOT Max Jose Armando: 97.1 cm/sec Ao V2 mean: 88.7 cm/sec LV V1 max P.8 mmHg Ao max P.1 mmHg LV V1 VTI: 22.0 cm Ao mean P.4 mmHg VALENTINA(I,D): 3.4 cm2 Ao V2 VTI: 26.7 cm VALENTINA(V,D): 3.3 cm2 sev ratio: 0.82 VALENTINA indexed to BSA (cm^2/m^2): 1.9 MV E max jose armando: 86.5 cm/sec PA V2 max: 73.9 cm/sec MV A max jose armando: 103.1 cm/sec PA V2 mean: 53.1 cm/sec MV E/A: 0.84 PA mean P.2 mmHg Med Peak E' Jose Armando: 5.4 cm/sec PA pr(Accel): 20.8 mmHg E/E' med: 16.1 Lat Peak E' Jose Armando: 6.4 cm/sec E/E' lat: 13.5 E/e' average: 14.8 MV dec time: 0.28 sec SV(LVOT): 91.6 ml Reading Physician:09:19 AM
== END ==
PROVIDERS: PCP Internal Medicine; Referring Provider Internal Medicine; Visit Provider Internal Medicine
DX: R00.2 Palpitations (principal); I08.1 Rheumatic disorders of both mitral and tricuspid valves
CPT/HCPCS: 93306

== ENCOUNTER → 2023-03-31 17:10 | Outpatient (CLI) | payer MEDICARE, OTHER, SELFPAY ==
--- NOTE | 2023-03-31 17:12 | DI.MG.S_ITS ---
BILATERAL DIGITAL SCREENING MAMMOGRAM 3D/2D WITH CAD: 03/31/2023 CLINICAL: Routine screening. Family history of breast cancer. Comparison is made to exams dated: 03/08/2022 mammogram - [facility], 02/11/2022 mammogram, 02/10/2021 mammogram, and 01/09/2020 mammogram - [facility]. Both breasts are heterogeneously dense, which may obscure small masses (category c / 51-75% glandular tissue). Current study was also evaluated with a Computer Aided Detection (CAD) system. No significant masses, calcifications, or other findings are seen in either breast. There has been no significant interval change. IMPRESSION: NEGATIVE There is no mammographic evidence of malignancy. A 1 year screening mammogram is recommended. Based on the Tyrer Cuzick model (a risk assessment model) the patient's lifetime risk is 16.9% and her 10 year risk is 8.4%. According to the ACR, ACS, and NCCN guidelines, an annual breast MRI exam along with mammogram is recommended if the patient's lifetime risk is 20% or greater. This exam was interpreted at Station ID: [id number]. NOTE: For mammograms, a report in lay terms will be sent to the patient. Approximately 15% of breast malignancies will not be visualized mammographically. In the management of a palpable breast mass, a negative mammogram must not discourage biopsy of a clinically suspicious lesion. Electronically Signed By: Gurinder hernandez/denis:04/03/2023 07:43:53 letter sent: Normal Exam ACR BI-RADS Category 1: Negative [id number]
== END ==
LOC: MAMMO 17:11
PROVIDERS: PCP Internal Medicine; Referring Provider Internal Medicine; Visit Provider Internal Medicine
DX: Z12.31 Encounter for screening mammogram for malignant neoplasm of breast (principal); Z80.3 Family history of malignant neoplasm of breast; R92.333 Mammographic heterogeneous density, bilateral breasts
CPT/HCPCS: 77063; 77067

== ENCOUNTER → 2024-04-01 13:12 | Outpatient (CLI) | payer MEDICARE, OTHER, SELFPAY ==
--- NOTE | 2024-04-01 | DI.MG.S_ITS ---
BILATERAL DIGITAL SCREENING MAMMOGRAM 3D/2D WITH CAD: 04/01/2024 CLINICAL: Routine screening. Family history of breast cancer. Comparison is made to exams dated: 03/31/2023 mammogram - [facility], 03/08/2022 mammogram - [facility], 02/11/2022 mammogram, 02/10/2021 mammogram, 01/09/2020 mammogram, and 01/07/2019 mammogram - [facility]. The breasts are heterogeneously dense, which may obscure small masses (category c / 51-75% glandular tissue). Current study was also evaluated with a Computer Aided Detection (CAD) system. No significant masses, calcifications, or other findings are seen in either breast. There has been no significant interval change. IMPRESSION: NEGATIVE There is no mammographic evidence of malignancy. A 1 year screening mammogram is recommended. Based on the Tyrer Cuzick model (a risk assessment model) the patient's lifetime risk is 16.2% and her 10 year risk is 8.3%. According to the ACR, ACS, and NCCN guidelines, an annual breast MRI exam along with mammogram is recommended if the patient's lifetime risk is 20% or greater. This exam was interpreted at Station ID: [id number]. NOTE: For mammograms, a report in lay terms will be sent to the patient. Approximately 15% of breast malignancies will not be visualized mammographically. In the management of a palpable breast mass, a negative mammogram must not discourage biopsy of a clinically suspicious lesion. Electronically Signed By: Carmelina Cordova M.D., Ph.D. iggy/denis:04/01/2024 16:38:54 letter sent: Normal Exam ACR BI-RADS Category 1: Negative
== END ==
PROVIDERS: PCP Internal Medicine; Referring Provider Internal Medicine; Visit Provider Internal Medicine
DX: Z12.31 Encounter for screening mammogram for malignant neoplasm of breast (principal); R92.333 Mammographic heterogeneous density, bilateral breasts; Z80.3 Family history of malignant neoplasm of breast
CPT/HCPCS: 77063; 77067

== ENCOUNTER → 2024-12-20 14:12 | Outpatient (CLI) | payer MEDICARE, OTHER, SELFPAY ==
--- NOTE | 2024-12-20 14:16 | DI.RAD.S_ITS ---
PROCEDURE: XR DEXA AXIAL SKELETON INDICATIONS: osteoporosis screening COMPARISON: [facility], CR, XR DEXA AXIAL SKELETON, 09/09/2022, 11:42. FINDINGS: Lumbar Spine: Bone mineral density 0.711 (previously 0.683) g/cm2, T score -2.8 (previously -3.0). Left Femoral Neck: Bone mineral density 0.629 (previously 0.650) g/cm2, T score -2.0 (previously -1.8). Left Hip: Bone mineral density 0.774 (previously 0.761) g/cm2, T score -1.4 (previously -1.5). Fracture Risk Calculation (when applicable): 10-year fracture risk of a major osteoporotic fracture 21 percent and of a hip fracture 4.3 percent. (T score greater or equal to -1.0 to: NORMAL) (T score from -1.1 to -2.4: OSTEOPENIA) (T score less than or equal to -2.5: OSTEOPOROSIS) IMPRESSION: Osteoporosis--- recommend repeat DEXA in 2 years or less for reassessment of response to treatment. Follow-up guidelines as follows: Osteoporosis: Consider a repeat DEXA and Vertebral Fracture Assessment (VFA) exam in 2 years or sooner if medically necessary, to reassess this patient's status. Osteopenia: Consider a repeat DEXA in 2-3 years to reassess this patient's status, or if there is a new clinical indication. Normal: Consider a repeat DEXA in 5 years or sooner, or if there is a new clinical indication. All treatment decisions require clinical judgment and consideration of individual patient factors, including patient preferences, comorbidities, previous drug use, risk factors not captured in the FRAX model (e.g., frailty, falls, vitamin D deficiency, increased bone turnover, interval significant decline in bone density ) and possible under- or over-estimation of fracture risk by FRAX. In addition, the NOF Guide recommends that FDA-approved medical therapies be considered in postmenopausal women and men age >= 50 years with a: * Hip or vertebral (clinical or morphometric) fracture * T-score of <=-2.5 at the spine or hip * Ten-year fracture probability by FRAX of >= 3% for hip fracture or >=20% for major osteoporotic fracture. Dictated by: Vargas Urena M.D. on 12/23/2024 at 18:20 Approved by: Vargas Urena M.D. on 12/23/2024 at 18:23
== END ==
LOC: RAD 14:13
PROVIDERS: PCP Family Medicine; Referring Provider Family Medicine; Visit Provider Family Medicine
DX: M81.0 Age-related osteoporosis without current pathological fracture (principal)
CPT/HCPCS: 77080